=== PATIENT | female | born 1990 | race Caucasian/White ===

== ENCOUNTER 2017-03-04 16:57 | Emergency (ER) | payer OTHER ==
[~2017-03-04] VITALS: Ht 162.6 cm; Wt 54.4 kg
--- NOTE | 2017-03-04 17:06 | NUR ---
SELF PRESENTS TO ED: SOB X 1.5 WEEKS. VSS. AWAITING MD ORDER
--- NOTE | 2017-03-04 17:45 | NUR ---
AT BEDSIDE FOR EVAL
--- NOTE | 2017-03-04 17:53 | NUR ---
URINE SAMPLE COLLECTED SENT TO LAB
--- NOTE | 2017-03-04 17:53 | NUR ---
LAB AT BEDSIDE COLLECTED BLOOD SAMPLE
[2017-03-04 17:56] LABS: APPEARANCE,URINE Clear (CLEAR); BILIRUBIN,URINE Negative (NEGATIVE); BLOOD, URINE Negative Ery/uL (NEGATIVE); COLOR,URINE Yellow (YELLOW); KETONES,URINE Negative (NEGATIVE); LEUKOCYTE ESTERASE ,URINE Negative (NEGATIVE); NITRITE, URINE Negative (NEGATIVE); PROTEIN,URINE Negative (NEGATIVE); UGLUCOSE Negative (NEGATIVE); UROBILINOGEN,URINE 0.2 EU/dL (0.2)
[2017-03-04 17:58] LABS: PREGNANCY TEST URINE QUAL NEGATIVE (NEGATIVE)
[2017-03-04 18:03] LABS: BASOPHILS # (AUTO) 0.1 /CMM (0.0-0.2); BASOPHILS % (AUTO) 0.9 % (0.0-2.0); EOSINOPHILS # (AUTO) 0.2 /CMM (0.0-0.7); EOSINOPHILS % (AUTO) 3.4 % (0.0-6.0); HEMATOCRIT 47 % (33-45); HEMOGLOBIN 15.4 g/dL (11.5-14.8); LYMPHOCYTES # (AUTO) 1.5 /CMM (0.8-4.8); LYMPHOCYTES % (AUTO) 22.6 % (20.0-44.0); MEAN CORPUSCULAR HEMOGLOBIN 29 PG (26.0-33.0); MEAN CORPUSCULAR HGB CONC 33 g/dl (31.0-36.0); MEAN CORPUSCULAR VOLUME 88 fL (82-100); MONOCYTES # (AUTO) 0.3 /CMM (0.1-1.30); NEUTROPHILS # (AUTO) 4.6 /CMM (1.8-8.9); NEUTROPHILS % (AUTO) 68.1 % (43.0-81.0); PLATELET COUNT (AUTO) 210 /CMM (150-450); RDW COEFFICIENT OF VARIATION 12.7 (11.5-15.0); RED BLOOD CELL COUNT(AUTO) 5.33 MIL/uL (4.0-5.2); WHITE BLOOD COUNT (AUTO) 6.7 K/uL (4.3-11.0)
[2017-03-04 18:08] LABS: CALCIUM, SERUM 9.5 mg/dL (8.5-10.1); CREATININE 0.9 mg/dL (0.6-1.3); POTASSIUM 3.6 mmol/L (3.5-5.1)
--- NOTE | 2017-03-04 18:09 | NUR ---
XRAY AT BEDSIDE
--- NOTE | 2017-03-04 19:24 | NUR ---
Patient discharged to home in stable condition. Written and verbal after care instructions given. Patient verbalizes understanding of instruction.
[2017-03-04 20:24] VITALS: BP 129/81
== END 2017-03-04 20:25 | disposition home or self-care (01) ==
LOC: ER 17:02
DX: R53.1 Weakness (principal); Z88.0 Allergy status to penicillin; F17.210 Nicotine dependence, cigarettes, uncomplicated; R53.83 Other fatigue; J02.9 Acute pharyngitis, unspecified
CPT/HCPCS: 36415; 71010-TC; 80048-TC; 81000-TC; 84703-TC; 85025-TC; 86308-TC; A4606; Z7610